=== PATIENT | male | born 1950 | race Hispanic/Latino ===

== ENCOUNTER → 2018-03-24 | Day surgery (SDC) | payer MEDICARE ==
[2018-03-20 14:48] LABS: BASOPHILS % 0.4 % (0.0-1.0); EOSINOPHILS # (AUTO) 0.2 (0.0-0.4); EOSINOPHILS % 2.7 % (0.0-6.0); HEMATOCRIT 39.4 % (38.2-49.6); HEMOGLOBIN 14.4 g/dL (14.0-18.0); LYMPHOCYTES # (AUTO) 2.5 (1.0-3.2); LYMPHOCYTES % 32.3 % (18.0-39.1); MEAN CORPUSCULAR HEMOGLOBIN 33.7 pg (28-32); MEAN CORPUSCULAR HGB CONC 36.5 g/dL (31-35); MEAN CORPUSCULAR VOLUME 92.3 fL (81-99); MONOCYTES # (AUTO) 0.6 (0.2-0.8); MONOCYTES % 7.4 % (4.4-11.3); NEUTROPHILS # (AUTO) 4.4 (2.1-6.9); NEUTROPHILS % 56.8 % (38.7-80.0); PLATELET COUNT 184 x10e3/uL (140-360); RED BLOOD COUNT 4.27 x10e6/uL (4.3-5.7)
[2018-03-20 15:00] LABS: INR 1.13; PROTHROMBIN TIME 13.6 seconds (11.9-14.5)
[2018-03-20 15:01] LABS: CALCIUM 9.7 mg/dL (8.4-10.2); PARTIAL THROMBOPLASTIN TIME 30.4 seconds (23.8-35.5); POTASSIUM 3.2 mmol/L (3.5-5.1)
[2018-03-20 15:22] LABS: ALBUMIN 4.3 g/dL (3.5-5.0); ALBUMIN/GLOBULIN RATIO 1.3 (0.8-2.0); ANION GAP 15.2 mmol/L (8-16); CREATININE, SERUM 1.31 mg/dL (0.72-1.25)
--- NOTE | 2018-03-20 15:36 | Diagnostic Imaging Report ---
EXAMINATION: CHEST 2 VIEWS INDICATION: \S\pre preprocedure workup Left heart cath \[id number] \S\1454 COMPARISON: None FINDINGS: PA and lateral views TUBES and LINES: None. LUNGS: Lungs are well inflated. Lungs are clear. There is no evidence of pneumonia or pulmonary edema. PLEURA: No pleural effusion or pneumothorax. HEART AND MEDIASTINUM: The cardiomediastinal silhouette is unremarkable. BONES AND SOFT TISSUES: No acute osseous lesion. Soft tissues are unremarkable. UPPER ABDOMEN: No free air under the diaphragm. IMPRESSION: No acute thoracic abnormality. Signed by: DR. Ruben Singh MD on 03/20/2018 3:33 PM
[~2018-03-24] VITALS: Ht 177.8 cm; Wt 106.1 kg
[2018-03-24] VITALS (33 sets, daily range): BP systolic 18–157; BP diastolic 56–141
[~2018-03-24] MED LIST: AMLODIPINE BESY10 MG PO; ASPIRIN81 MG PO; DICYCLOMINE HCL10 MG PO; FENTANYL CITRATE/PF 100MCG/2 ML INJ ONE; FUROSEMIDE40 MG PO; HEPARIN SOD/SOD CHLORIDE 2,000 ML ONE; IOPAMIDOL 370 MG/ML 200 ML INFUS..BTL INJ ONE; LIDOCAINE HCL 2% LOCAL 20 ML VIAL ONE; LOSARTAN POTAS100 MG PO; LOVASTATIN40 MG PO; METOLAZONE5 MG PO; METOPROLOL TART25 MG PO; MIDAZOLAM HCL 2 MG/2 ML VIAL ONE; NAPROXEN SODIU550 MG PO; NITROGLYCERIN0.4 MG SL; OMEPRAZOLE40 MG PO; SODIUM CHLORIDE 0.9% 1000ML 1,000 ML ONE
--- NOTE | 2018-03-24 16:25 | Operative Report ---
DATE OF PROCEDURE: March 24, 2018 PROCEDURES PERFORMED: 1. Left heart catheterization. 2. Selective coronary angiogram. 3. Left ventriculogram. INDICATIONS: Chest pain and abnormal stress test. ANESTHESIA: Two percent lidocaine for local anesthesia, fentanyl and Versed for conscious sedation. DESCRIPTION OF PROCEDURE: After informed consent, patient was brought to the cardiac catheterization laboratory and placed on the table. Both groins were painted and draped in a sterile fashion. Lidocaine was injected in the right groin for local anesthesia. Right femoral artery was accessed by Seldinger technique, and a 5-Belizean sheath was placed in the right femoral artery. Left main artery was cannulated using a JL4, 5-Belizean catheter. Coronary angiogram was performed, and images were obtained in multiple views. Right coronary artery was cannulated using a 3DRC 5-[place]an catheter. Coronary angiogram was performed, and images were obtained in multiple views. LV-gram was performed using a pigtail catheter. Patient tolerated the procedure without any complications. REPORT: LEFT MAIN: Normal caliber and has luminal irregularities. LEFT ANTERIOR DESCENDING: Normal caliber with a 30% mid lesion followed by another 30% to 40% mid to distal lesion. LEFT CIRCUMFLEX: Narrow caliber vessel is diffusely diseased throughout its course. Gives rise to a large 1st obtuse marginal branch which has no significant stenosis. RIGHT CORONARY ARTERY: Normal caliber, has luminal irregularities and totally occluded in its very distal portion. There are some collaterals from the left to right side supplying the very distal right coronary artery. LV-GRAM: Normal LV function. Overall ejection fraction is 55% to 60%. HEMODYNAMICS: Aortic pressure is 141/76. LV pressure 147/10. LVEDP is 18. PLAN: Medical management. Job#: [id number]
--- OUTSIDE RECORDS SUMMARY | 2018-04-23 05:52 | XMS REPORT ---
Author Author [facility] Address Unknown Phone Unavailable Care Team Providers Care Utility Specialist Name Role Phone OSVALDO DE JESUS Unavailable Unavailable Problems This patient has no known problems. Allergies, Adverse Reactions, Alerts This patient has no known allergies or adverse reactions. Medications This patient has no known medications. Results Test Description Test Time Test Comments Text Results Atomic Results Result Comments CHEST 2 VIEWS 2018-03-20 15:31:00 [place] [id number] Patient Name: CALIN VAIL MR #: [id number] : 1950 Age/Sex: 68/M Req #: [id number] Adm Physician: Ordered by: OSVALDO DE JESUS MD Report #: [id number] Location: [facility] Room/Bed: Procedure: [id number] DX/CHEST 2 VIEWS Exam Date: 03/20/18 Exam Time: 1454 REPORT STATUS: Signed EXAMINATION: CHEST 2 VIEWS INDICATION: COMPARISON: None FINDINGS: PA and lateral views TUBES and LINES: None. LUNGS: Lungs are well inflated. Lungs are clear. There is no evidence of pneumonia or pulmonary edema. PLEURA: No pleural effusion or pneumothorax. HEART AND MEDIASTINUM: The cardiomediastinal silhouette is unremarkable. BONES AND SOFT TISSUES: No acute osseous lesion. Soft tissues are unremarkable. UPPER ABDOMEN: No free air under the diaphragm. IMPRESSION: No acute thoracic abnormality. Signed by: DR. Ruben Robles MD on 03/20/2018 3:33 PM Dictated By: RUBEN ROBLES MD [id number] Transcribed By: BEATRICE on 03/20/18 1533 COPY TO: OSVALDO DE JESUS MD
== END | disposition home or self-care (01) ==
LOC: CATH LAB 06:08
DX: I25.10 Atherosclerotic heart disease of native coronary artery without angina pectoris (principal); R94.39 Abnormal result of other cardiovascular function study; I10 Essential (primary) hypertension; K21.9 Gastro-esophageal reflux disease without esophagitis; Z01.810 Encounter for preprocedural cardiovascular examination; Z01.812 Encounter for preprocedural laboratory examination; Z01.818 Encounter for other preprocedural examination; Z79.82 Long term (current) use of aspirin; Z68.33 Body mass index [BMI] 33.0-33.9, adult
CPT/HCPCS: 36415; 71046; 80053; 85025; 85610; 85730; 93005; 93458; J2001; J2250; J7030; Q9967

== ENCOUNTER → 2019-01-22 | Outpatient (CLI) | payer MEDICARE ==
[~2019-01-22] MED LIST changes: +B&O 60MG R/S 60 MG SUPP PR ONE; -FENTANYL CITRATE/PF 100MCG/2 ML INJ ONE; -HEPARIN SOD/SOD CHLORIDE 2,000 ML ONE; -IOPAMIDOL 370 MG/ML 200 ML INFUS..BTL INJ ONE; +IOPAMIDOL 610MG/1ML 300 MG/ML VIAL IV ONE; -LIDOCAINE HCL 2% LOCAL 20 ML VIAL ONE; -MIDAZOLAM HCL 2 MG/2 ML VIAL ONE; +REGADENOSON 0.4 MG/5 ML SYR IV ONE; -SODIUM CHLORIDE 0.9% 1000ML 1,000 ML ONE
--- NOTE | 2019-01-28 19:03 | Myoview Stress Test ---
DATE OF STUDY: 01/22/2019 10:17:00 Stress Test - Treadmill ONLY PROCEDURE TITLE: Rest/stress single isotope SPECT imaging with exercise stress and gated SPECT imaging. PROCEDURE IN DETAIL: The patient performed treadmill exercise using a Walter protocol, exercising for 5 minutes and 32 seconds to stage II and completing estimated workload of 7 metabolic equivalents (METs). The heart rate was 94 beats per minute at rest and increased to 127 beats per minute. At peak exercise, it was 84% of the maximum predicted heart rate. The rest blood pressure was 163/77 mmHg and increased to 205/86 mmHg, which is a normal response. The resting electrocardiogram demonstrated normal sinus rhythm. There were no ST-segment changes suggestive of myocardial ischemia. Next, myocardial perfusion imaging was performed at rest following the injection of 11 mCi of tetrofosmin. At peak exercise, the patient was injected with 32.6 mCi of tetrofosmin. Gated post-stress tomographic imaging was performed. FINDINGS: The overall quality of study is fair. Left main cavity is noted to be normal size on the rest and stress studies. SPECT images demonstrate a small mild perfusion defect in the inferior wall at rest that is worse with stress. Gated SPECT imaging reveals normal myocardial thickening and wall motion. Left ventricular ejection fraction was greater than 50% by visual estimate. IMPRESSION: Myocardial perfusion imaging is abnormal. There is a small area of ischemia in the inferior wall. Overall, left ventricular systolic function was normal without regional wall motion abnormalities. Riya Odom MD ABS/MODL /[id number]
== END ==
LOC: NM 09:55
PROVIDERS: ATTEND Internal Medicine Interventional Cardiology
DX: I20.8 Other forms of angina pectoris (principal)
CPT/HCPCS: 78452; 93017; 93306; A9502; J2785; Q9967

== ENCOUNTER → 2020-02-22 | Day surgery (SDC) | payer MEDICARE, OTHER ==
[2020-02-17 09:57] LABS: BASOPHILS % 0.5 % (0.0-1.0); EOSINOPHILS # (AUTO) 0.2 (0.0-0.4); EOSINOPHILS % 1.8 % (0.0-6.0); HEMATOCRIT 44.1 % (38.2-49.6); HEMOGLOBIN 15.7 g/dL (14.0-18.0); LYMPHOCYTES # (AUTO) 2.3 (1.0-3.2); LYMPHOCYTES % 28.4 % (18.0-39.1); MEAN CORPUSCULAR HEMOGLOBIN 32.6 pg (28-32); MEAN CORPUSCULAR HGB CONC 35.6 g/dL (31-35); MEAN CORPUSCULAR VOLUME 91.5 fL (81-99); MONOCYTES # (AUTO) 0.5 (0.2-0.8); MONOCYTES % 5.6 % (4.4-11.3); NEUTROPHILS # (AUTO) 5.2 (2.1-6.9); NEUTROPHILS % 63.2 % (38.7-80.0); PLATELET COUNT 171 x10e3/uL (140-360); RED BLOOD COUNT 4.82 x10e6/uL (4.3-5.7); RED CELL DISTRIBUTION WIDTH 13.1 % (11.7-14.4)
[2020-02-17 10:22] LABS: ALANINE AMINOTRANSFERASE 24 IU/L (0-55); ALBUMIN 3.9 g/dL (3.5-5.0); ALBUMIN/GLOBULIN RATIO 1.2 (0.8-2.0); ALKALINE PHOSPHATASE 84 IU/L (40-150); ANION GAP 15.8 mmol/L (8-16); BLOOD UREA NITROGEN 12 mg/dL (7-26); BUN/CREATININE RATIO 11 (6-25); CALCIUM 9.2 mg/dL (8.4-10.2); CARBON DIOXIDE 23 mmol/L (22-29); CHLORIDE 106 mmol/L (98-107); CREATININE, SERUM 1.09 mg/dL (0.72-1.25); EST GLOMERULAR FILTRATION RATE > 60 ML/MIN (60-); GLUCOSE 124 mg/dL (74-118); POTASSIUM 3.8 mmol/L (3.5-5.1); SODIUM 141 mmol/L (136-145)
[~2020-02-22] VITALS: Ht 177.8 cm; Wt 107.0 kg
[2020-02-22] VITALS (13 sets, daily range): BP systolic 132–151; BP diastolic 78–98
[~2020-02-22] MED LIST changes: -B&O 60MG R/S 60 MG SUPP PR ONE; +DICLOFENAC SODI50 MG PO; +FENTANYL CITRATE/PF 100MCG/2 ML INJ ONE; +HEPARIN SOD/SOD CHLORIDE 2,000 ML ONE; +IOPAMIDOL 370 MG/ML 200 ML INFUS..BTL INJ ONE; -IOPAMIDOL 610MG/1ML 300 MG/ML VIAL IV ONE; +LATANOPROST2.5 ML OP; +LIDOCAINE HCL 2% LOCAL 20 ML VIAL ONE; +METOPROLOL SUCC50 MG PO; +MIDAZOLAM HCL 2 MG/2 ML VIAL ONE; +POTASSIUM CHLO10 ME1 PO; -REGADENOSON 0.4 MG/5 ML SYR IV ONE; +SODIUM CHLORIDE 0.9% 1000ML 1,000 ML ONE; +SYSTANE 0.3-0.415 ML OP
--- NOTE | 2020-02-22 09:27 | Operative Report ---
DATE OF PROCEDURE: 02/22/2020 SURGEON: Blair Aldana MD INDICATIONS: Coronary artery disease, angina, abnormal stress test. PROCEDURES PERFORMED: 1. Conscious sedation administration, hemodynamic, neurological monitoring and recovery by animal laboratory technician RN, supervision by , 35 minutes. 2. Ultrasound-guided access in the right radial artery with imaged origin sheath placement. 3. Left heart catheterization, selective coronary angiography. 4. Deployment of right wrist TR band. COMPLICATIONS: None. BLOOD LOSS: Minimal. RECOMMENDATIONS: Aggressive medical therapy for chronic total occlusion of right coronary artery. DESCRIPTION OF PROCEDURE: Access was obtained in the right radial artery. Using ultrasound guidance, a 5-Malian sheath was placed. Coronary angiography demonstrated patent left main, left anterior descending artery, proximal and mid 60% to 70% stenosis, mid and distal vessels diffuse 30% to 50% stenosis, circumflex moderate disease. Right coronary artery is occluded in its proximal portion. The right posterior descending artery fill via grade 4 collaterals from the left coronary system. LV end-diastolic pressure of 14. No gradient across the aortic valve on pullback. No intervention deemed necessary. Right wrist TR band applied. The patient discharged home the same day. Blair Aldana MD KSB/MODL /[id number]
== END | disposition home or self-care (01) ==
LOC: CATH LAB 05:55
PROVIDERS: ATTEND Internal Medicine Interventional Cardiology
DX: I25.118 Atherosclerotic heart disease of native coronary artery with other forms of angina pectoris (principal); I25.82 Chronic total occlusion of coronary artery; R94.39 Abnormal result of other cardiovascular function study; I10 Essential (primary) hypertension; E78.5 Hyperlipidemia, unspecified; Z01.812 Encounter for preprocedural laboratory examination; R73.03 Prediabetes; Z11.59 Encounter for screening for other viral diseases; Z79.82 Long term (current) use of aspirin; Z68.31 Body mass index [BMI] 31.0-31.9, adult
CPT/HCPCS: 36415; 76937 ×2; 80053; 85025; 93458; C1769 ×2; C1887; J2001; J2250; J3010; J7030; Q9967; U0002; 99152; 99153

== ENCOUNTER → 2021-06-05 | Day surgery (SDC) | payer MEDICARE ==
[2021-06-01 09:50] LABS: BASOPHILS % 0.3 % (0.0-1.0); EOSINOPHILS # (AUTO) 0.1 (0.0-0.4); EOSINOPHILS % 1.5 % (0.0-6.0); HEMATOCRIT 42.4 % (38.2-49.6); HEMOGLOBIN 14.9 g/dL (14.0-18.0); LYMPHOCYTES % 25.4 % (18.0-39.1); MEAN CORPUSCULAR HEMOGLOBIN 32.9 pg (28-32); MEAN CORPUSCULAR HGB CONC 35.1 g/dL (31-35); MEAN CORPUSCULAR VOLUME 93.6 fL (81-99); MONOCYTES # (AUTO) 0.5 (0.2-0.8); MONOCYTES % 6.8 % (4.4-11.3); NEUTROPHILS # (AUTO) 5.2 (2.1-6.9); NEUTROPHILS % 65.5 % (38.7-80.0); PLATELET COUNT 173 x10e3/uL (140-360); RED BLOOD COUNT 4.53 x10e6/uL (4.3-5.7); RED CELL DISTRIBUTION WIDTH 13.6 % (11.7-14.4)
[2021-06-01 10:31] LABS: ALBUMIN/GLOBULIN RATIO 1.3 (0.8-2.0); ANION GAP 12.9 mmol/L (8-16); CALCIUM 9.6 mg/dL (8.4-10.2); CREATININE, SERUM 1.04 mg/dL (0.72-1.25); POTASSIUM 3.9 mmol/L (3.5-5.1)
[2021-06-05] VITALS (12 sets, daily range): BP systolic 121–152; BP diastolic 62–86
[~2021-06-05] VITALS: Ht 177.8 cm; Wt 104.3 kg
[~2021-06-05] MED LIST changes: +ALPRAZOLAM 0.5 MG TAB ONE; +ALTOPREV40 MG PO; +ATORVASTATIN CA40 MG PO; +BIVALRIUDIN 250 MG/VIAL VIAL IV ONE; +CLONIDINE HCL0.1 MG PO; +DIPHENHYDRAMINE HCL 25 MG CAP ONE; +RANOLAZINE ER500 MG PO; +SODIUM CHLORIDE 0.9% 50ML 50 ML ONE; +VERAPAMIL HCL 2.5 MG/ML 2 ML VIAL ONE
== END | disposition home or self-care (01) ==
LOC: CATH LAB 13:33
PROVIDERS: ATTEND Internal Medicine Interventional Cardiology
DX: I25.118 Atherosclerotic heart disease of native coronary artery with other forms of angina pectoris (principal); R94.39 Abnormal result of other cardiovascular function study; I77.1 Stricture of artery; I77.9 Disorder of arteries and arterioles, unspecified; I11.0 Hypertensive heart disease with heart failure; I50.9 Heart failure, unspecified; E78.2 Mixed hyperlipidemia; Z01.812 Encounter for preprocedural laboratory examination; Z20.822 Contact with and (suspected) exposure to COVID-19; Z79.82 Long term (current) use of aspirin; Z79.899 Other long term (current) drug therapy; Z68.30 Body mass index [BMI] 30.0-30.9, adult
CPT/HCPCS: 93454; C9600; 36415; 76937; 80053; 83880; 85025; 99152; 99153; C1725; C1769; C1887; J0583; J2001; J2250; J3010; J7030; Q9967; U0002

== ENCOUNTER 2022-02-09 18:23 | Emergency (ER) | payer MEDICARE, OTHER ==
[~2022-02-09] VITALS: Ht 177.8 cm; Wt 104.3 kg
[~2022-02-09 18:23] MED LIST changes: -ALPRAZOLAM 0.5 MG TAB ONE; -BIVALRIUDIN 250 MG/VIAL VIAL IV ONE; -DIPHENHYDRAMINE HCL 25 MG CAP ONE; -FENTANYL CITRATE/PF 100MCG/2 ML INJ ONE; -HEPARIN SOD/SOD CHLORIDE 2,000 ML ONE; -IOPAMIDOL 370 MG/ML 200 ML INFUS..BTL INJ ONE; -LIDOCAINE HCL 2% LOCAL 20 ML VIAL ONE; -MIDAZOLAM HCL 2 MG/2 ML VIAL ONE; -SODIUM CHLORIDE 0.9% 1000ML 1,000 ML ONE; -SODIUM CHLORIDE 0.9% 50ML 50 ML ONE; -VERAPAMIL HCL 2.5 MG/ML 2 ML VIAL ONE
[2022-02-09] MEDS ORDERED: ASPIRIN 81 MG CHEW TAB PO ONE (18:30)
[2022-02-09 18:52] LABS: BASOPHILS % 0.4 % (0.0-1.0); EOSINOPHILS # (AUTO) 0.1 (0.0-0.4); EOSINOPHILS % 0.7 % (0.0-6.0); HEMATOCRIT 42.5 % (38.2-49.6); HEMOGLOBIN 14.9 g/dL (14.0-18.0); LYMPHOCYTES # (AUTO) 2.7 (1.0-3.2); LYMPHOCYTES % 26.6 % (18.0-39.1); MEAN CORPUSCULAR HEMOGLOBIN 33.3 pg (28-32); MEAN CORPUSCULAR HGB CONC 35.1 g/dL (31-35); MEAN CORPUSCULAR VOLUME 94.9 fL (81-99); MONOCYTES # (AUTO) 0.7 (0.2-0.8); MONOCYTES % 6.8 % (4.4-11.3); NEUTROPHILS # (AUTO) 6.6 (2.1-6.9); NEUTROPHILS % 65.2 % (38.7-80.0); PLATELET COUNT 175 x10e3/uL (140-360); RED BLOOD COUNT 4.48 x10e6/uL (4.3-5.7); RED CELL DISTRIBUTION WIDTH 14.1 % (11.7-14.4)
[2022-02-09 19:14] LABS: ALANINE AMINOTRANSFERASE 18 IU/L (0-55); ALBUMIN 3.8 g/dL (3.5-5.0); ALBUMIN/GLOBULIN RATIO 1.1 (0.8-2.0); ALKALINE PHOSPHATASE 73 IU/L (40-150); ANION GAP 15.2 mmol/L (8-16); BLOOD UREA NITROGEN 15 mg/dL (7-26); BUN/CREATININE RATIO 10 (6-25); CALCIUM 8.7 mg/dL (8.4-10.2); CARBON DIOXIDE 23 mmol/L (22-29); CHLORIDE 103 mmol/L (98-107); CREATINE KINASE 48 IU/L (30-200); CREATININE, SERUM 1.52 mg/dL (0.72-1.25); GLUCOSE 86 mg/dL (74-118); POTASSIUM 4.2 mmol/L (3.5-5.1); SODIUM 137 mmol/L (136-145)
[2022-02-09 19:31] LABS: AMPHETAMINES SCREEN,URINE NEGATIVE (NEGATIVE); BENZODIAZEPINES SCREEN,URINE NEGATIVE (NEGATIVE); PHENCYCLIDINE SCREEN,URINE NEGATIVE (NEGATIVE)
[2022-02-09 20:18] LABS: CREATINE KINASE 47 IU/L (30-200)
[2022-02-09 22:03] VITALS: BP 135/80
== END 2022-02-09 22:11 | disposition home or self-care (01) ==
LOC: ER 18:27
DX: R55 Syncope and collapse (principal); I25.10 Atherosclerotic heart disease of native coronary artery without angina pectoris; Z98.61 Coronary angioplasty status; Z20.822 Contact with and (suspected) exposure to COVID-19; Z79.82 Long term (current) use of aspirin; Z79.899 Other long term (current) drug therapy
CPT/HCPCS: 0223U; 36415; 70450; 71045; 72125; 80053; 80307; 82550; 82553; 83690; 83880; 84484; 85025; 85379; 90471; 93005; 99284

== ENCOUNTER 2022-08-21 07:12 | Emergency (ER) | payer MEDICARE, OTHER ==
[~2022-08-21] VITALS: Ht 177.8 cm; Wt 95.7 kg
[~2022-08-21 07:12] MED LIST changes: +AUGMENTIN 500-1 EACH PO; +PERCOCET 10-321 EACH PO
[2022-08-21] MEDS ORDERED: SODIUM CHLORIDE 0.9% 1000ML 1,000 ML IV SCH (07:15)
[2022-08-21 07:34] LABS: BASOPHILS % 0.1 % (0.0-1.0); EOSINOPHILS % 0.1 % (0.0-6.0); HEMATOCRIT 48.2 % (38.2-49.6); HEMOGLOBIN 15.5 g/dL (14.0-18.0); LYMPHOCYTES # (AUTO) 0.7 (1.0-3.2); LYMPHOCYTES % 8.2 % (18.0-39.1); MEAN CORPUSCULAR HEMOGLOBIN 31.8 pg (28-32); MEAN CORPUSCULAR HGB CONC 32.2 g/dL (31-35); MONOCYTES # (AUTO) 0.5 (0.2-0.8); MONOCYTES % 6.2 % (4.4-11.3); NEUTROPHILS # (AUTO) 7.2 (2.1-6.9); PLATELET COUNT 227 x10e3/uL (140-360); RED BLOOD COUNT 4.87 x10e6/uL (4.3-5.7)
[2022-08-21] MEDS ORDERED: ONDANSETRON HCL INJ 2MG/ML 2ML 2 MG/ML VIAL ONE (07:49)
[2022-08-21 07:59] LABS: ALBUMIN 3.8 g/dL (3.5-5.0); ALBUMIN/GLOBULIN RATIO 1.3 (0.8-2.0); CALCIUM 9.2 mg/dL (8.4-10.2); CREATININE, SERUM 1.17 mg/dL (0.72-1.25)
[2022-08-21] MEDS ORDERED: DICYCLOMINE HCL 20 MG/2 ML VIAL IM ONE (08:00)
[2022-08-21 08:15] LABS: INR 1.04; PROTHROMBIN TIME 13.8 seconds (11.9-14.5)
[2022-08-21] MEDS ORDERED: IOPAMIDOL 370 MG/ML 100 ML INFUS..BTL INJ ONE (08:17)
[2022-08-21] MEDS ORDERED: CEFDINIR300 MG PO (09:04)
[2022-08-21] MEDS ORDERED: DOXYCYCLINE HY100 MG PO (09:04)
== END 2022-08-21 09:33 | disposition home or self-care (01) ==
LOC: ER 07:16
DX: R50.9 Fever, unspecified (principal); J18.9 Pneumonia, unspecified organism; R07.89 Other chest pain; I10 Essential (primary) hypertension; I50.9 Heart failure, unspecified; E78.5 Hyperlipidemia, unspecified; I25.10 Atherosclerotic heart disease of native coronary artery without angina pectoris; K21.9 Gastro-esophageal reflux disease without esophagitis; M10.9 Gout, unspecified; H40.9 Unspecified glaucoma; Z20.822 Contact with and (suspected) exposure to COVID-19; R94.31 Abnormal electrocardiogram [ECG] [EKG]
CPT/HCPCS: 36415; 71045; 74177; 80053; 83690; 84484; 85025; 85610; 93005; 99284; C9113; J0500; J7030; Q9967; U0002; J2405

== ENCOUNTER 2022-08-22 12:29 | Emergency (ER) | payer MEDICARE, OTHER ==
[~2022-08-22] VITALS: Ht 177.8 cm; Wt 97.5 kg
[~2022-08-22 12:29] MED LIST changes: +CEFDINIR300 MG PO; +DOXYCYCLINE HY100 MG PO
== END 2022-08-22 14:08 | disposition home or self-care (01) ==
LOC: ER 12:36
DX: R06.02 Shortness of breath (principal); J18.9 Pneumonia, unspecified organism; R53.1 Weakness; I10 Essential (primary) hypertension; E78.5 Hyperlipidemia, unspecified; I50.9 Heart failure, unspecified; I25.10 Atherosclerotic heart disease of native coronary artery without angina pectoris; K21.9 Gastro-esophageal reflux disease without esophagitis; M10.9 Gout, unspecified; H40.9 Unspecified glaucoma
CPT/HCPCS: 99281

== ENCOUNTER → 2022-10-29 | Day surgery (SDC) | payer MEDICARE ==
[2022-10-09 10:40] LABS: BASOPHILS % 0.5 % (0.0-1.0); EOSINOPHILS # (AUTO) 0.1 (0.0-0.4); EOSINOPHILS % 0.6 % (0.0-6.0); HEMATOCRIT 45.9 % (38.2-49.6); HEMOGLOBIN 15.8 g/dL (14.0-18.0); LYMPHOCYTES # (AUTO) 2.1 (1.0-3.2); LYMPHOCYTES % 25.8 % (18.0-39.1); MEAN CORPUSCULAR HEMOGLOBIN 32.6 pg (28-32); MEAN CORPUSCULAR HGB CONC 34.4 g/dL (31-35); MEAN CORPUSCULAR VOLUME 94.8 fL (81-99); MONOCYTES # (AUTO) 0.6 (0.2-0.8); MONOCYTES % 6.9 % (4.4-11.3); NEUTROPHILS # (AUTO) 5.3 (2.1-6.9); NEUTROPHILS % 65.8 % (38.7-80.0); PLATELET COUNT 159 x10e3/uL (140-360); RED BLOOD COUNT 4.84 x10e6/uL (4.3-5.7); RED CELL DISTRIBUTION WIDTH 14.4 % (11.7-14.4)
[~2022-10-29] MED LIST changes: +ALLOPURINOL100 MG PO; +BUPIVACAINE HCL 0.5% INJ 30 ML VIAL INJ ONE; +CEFAZOLIN SODIUM 2 GM ONE; +COLCHICINE0.6 M1 PO; +DEXAMETHASONE SOD PHOS INJ 4 MG/ML SDV ONE; +FENTANYL CITRATE/PF 100MCG/2 ML INJ ONE; +LACTATED RINGER'S 1,000 ML ONE; +LIDOCAINE HCL 2% LOCAL INJ 5 ML SDV VIAL INJ ONE; +ONDANSETRON HCL INJ 2MG/ML 2ML 2 MG/ML VIAL ONE; +POVIDONE IODINE 0.05% 0.05 % ML PO ONE; +PREDNISONE20 MG PO; +PROPOFOL IV EMULSION 10 MG/ML 20 ML VIAL ONE; +SEVOFLURANE INHAL SOLN 250 ML PEN BTL ONE
[2022-10-29 08:20] VITALS: BP 153/85
== END | disposition home or self-care (01) ==
LOC: OR 06:37
PROVIDERS: ATTEND Podiatrist Foot & Ankle Surgery
DX: G57.51 Tarsal tunnel syndrome, right lower limb (principal); I83.91 Asymptomatic varicose veins of right lower extremity; Z01.810 Encounter for preprocedural cardiovascular examination; Z01.812 Encounter for preprocedural laboratory examination; Z01.818 Encounter for other preprocedural examination; Z79.899 Other long term (current) drug therapy
CPT/HCPCS: 28035; 36415; 71046; 85025; 93005; J1100; J2001; J2405; J2704; J3010; J7121